=== PATIENT | female | born 1965 | race Caucasian/White ===

== ENCOUNTER 2016-09-01 18:21 | Emergency (ER) | payer SELFPAY ==
[2016-09-01 18:33] VITALS: BP 108/59
--- NOTE | 2016-09-01 19:11 | UC ---
Skin Complaint HPI - HPI Summary HPI Summary: LAST WEEK BELIEVES SHE WAS BITTEN BY UNKNOWN INSECT. NO TICK BITES. DEVELOPED RED SWOLLEN AREA ON RIGHT FOREARM. NO FEVER. PAIN AND SWELLING HAVE INCREASED SINCE TIME OF INJURY. TODAY COWORKERS TOOK SOME MATERIAL FROM CENTER OF AREA. NO DISCHARGE. NO TICK BITES. - History of Current Complaint Hx Obtained From: Patient, Family/Ruling Technician Onset/Duration: Sudden Onset, Lasting Days, Worse Since - TODAY Skin Exposure Onset/Duration: Days Ago Onset Severity: Mild Current Severity: Moderate Location: Discrete - RIGHT FOREARM Character: Pruritus, Redness, Raised, Painful Aggravating: Nothing Alleviating: Nothing Associated Signs & Symptoms: Positive: Rash, Tenderness, Red Streaks. Negative : Nausea, Vomiting, Numbness, Difficulty Breathing, Fever, Chills, Cough, Wheezing, Chest Pain, Hoarseness, Throat Tightening, Drainage Related History: Insect Bite/Sting, Possible Reaction to: Insect, Possible Reaction to: Environmental Exposure <Lambert Diaz - Last Filed: 09/01/16 19:06> - HPI Summary HPI Summary: I was available for consultation. This patient was seen by mid level provider. The patient was not presented, seen, or examined by me. WR. <Jose Carlos Roberts - Last Filed: 09/04/16 11:08> - History of Current Complaint Chief Complaint: UCSkin Time Seen by Provider: 09/01/16 18:53 Stated Complaint: BUG BITE REACTION,SWELLING SKIN - Allergy/Home Medications Allergies/Adverse Reactions: Allergies Allergy/AdvReac Type Severity Reaction Status Date / Time Latex Allergy Mild REDNESS Verified 08/11/14 11:56 WITH BANDAIDS Hydrocodone [From Vicodin] AdvReac Nausea And Verified 08/11/14 11:56 Vomiting Nitrous Oxide AdvReac Vomiting Verified 08/11/14 11:56 Review of Systems Constitutional: Negative Skin: Rash Eyes: Negative ENT: Negative Respiratory: Negative Cardiovascular: Negative Gastrointestinal: Negative Genitourinary: Negative Motor: Negative Neurovascular: Negative Musculoskeletal: Negative Neurological: Negative Psychological: Negative All Other Systems Reviewed And Are Negative: Yes <Lambert Diaz - Last Filed: 09/01/16 19:06> PMH/Surg Hx/FS Hx/Imm Hx Previously Healthy: Yes Respiratory History Of: Reports: Asthma - exercise induced asthma, Bronchitis - HISTORY OF Psychological History Of: Reports: Anxiety - ON MEDICATION, Depression - Surgical History Surgical History: Yes Surgery Procedure, Year, and Place: 2002 LEFT SHOULDER SURGERY, [place]. 2012 COLONOSCOPY, hysterectomy - Family History Known Family History: Negative: Blood Disorder - Social History Occupation: Employed Full-time Lives: With Family Alcohol Use: None Substance Use Type: None Smoking Status (MU): Never Smoked Tobacco <Lambert Diaz - Last Filed: 09/01/16 19:06> Physical Exam Triage Information Reviewed: Yes Appearance: Well-Appearing, No Pain Distress, Well-Nourished Vital Signs: Initial Vital Signs Temp 98.2 F 09/01/16 18:28 Pulse 72 09/01/16 18:28 Resp 16 09/01/16 18:28 BP 108/59 09/01/16 18:28 Pulse Ox 100 09/01/16 18:28 Vital Signs Reviewed: Yes Eye Exam: Normal Eyes: Positive: Conjunctiva Clear ENT Exam: Normal ENT: Positive: Normal ENT inspection, Hearing grossly normal, Pharynx normal, TMs normal Dental Exam: Normal Neck exam: Normal Neck: Positive: Supple, Nontender, No Lymphadenopathy Respiratory Exam: Normal Respiratory: Positive: Chest non-tender, Lungs clear, Normal breath sounds, No respiratory distress Cardiovascular Exam: Normal Cardiovascular: Positive: RRR, No Murmur Abdominal Exam: Normal Abdomen Description: Positive: Nontender, No Organomegaly Musculoskeletal Exam: Normal Musculoskeletal: Positive: Strength Intact, ROM Intact Neurological Exam: Normal Psychological Exam: Normal Psychological: Positive: Normal Response To Family Skin: Positive: Other - 8CM X 5 CM EDEMATOUS ERRETHEMATOUS AREA ON RIGHT VENTRAL FOREARM <Lambert Diaz - Last Filed: 09/01/16 19:06> Vital Signs: Initial Vital Signs Temp 98.2 F 09/01/16 18:28 Pulse 72 09/01/16 18:28 Resp 16 09/01/16 18:28 BP 108/59 09/01/16 18:28 Pulse Ox 100 09/01/16 18:28 <Jose Carlos Roberts - Last Filed: 09/04/16 11:08> Course/Dx - Differential Diagnoses - Skin Complaint Differential Diagnoses: Abscess, Cellulitis, Contact Dermatitis, Foreign Body, Local Allergic Reaction, MRSA, Poison Trice, Poison Price - Diagnoses Provider Diagnoses: INSECT BITE RIGHT FORE ARM. POSSIBLE CELLULITIS RIGHT FORE ARM <Lambert Diaz - Last Filed: 09/01/16 19:06> - Course Course Of Treatment: I was available for consultation. This patient was seen by mid level provider. The patient was not presented, seen, or examined by me. WR. <Jose Carlos Roberts - Last Filed: 09/04/16 11:08> Discharge <Lambert Diaz - Last Filed: 09/01/16 19:06> <Jose Carlos Roberts - Last Filed: 09/04/16 11:08> - Discharge Plan Condition: Stable Disposition: HOME Prescriptions: DOXYcycline CAP(*) [DOXYcycline 100MG CAP(*)] 100 mg PO BID #20 cap diPHENhydraMINE PO* [Benadryl PO 50 MG CAP*] 50 mg PO TID PRN #15 cap PRN Reason: Itching Patient Education Materials: Cellulitis (ED), Insect Bite or Sting (ED) Referrals: Adalgisa Montana MD [Primary Care Provider] -
== END 2016-09-01 19:21 | disposition home or self-care (01) ==
LOC: UCEAST 18:21
DX: S50.861A Insect bite (nonvenomous) of right forearm, initial encounter (principal); W57.XXXA Bitten or stung by nonvenomous insect and other nonvenomous arthropods, initial encounter; Y93.9 Activity, unspecified; Y92.9 Unspecified place or not applicable; Z88.5 Allergy status to narcotic agent
CPT/HCPCS: 99212; G0463

== ENCOUNTER 2018-02-02 13:22 | Emergency (ER) | payer OTHER ==
[2018-02-02 13:39] VITALS: BP 105/60
--- NOTE | 2018-02-02 14:12 | UC ---
Head Injury HPI - HPI Summary HPI Summary: 52 yo female presents with head injury. She tells me that yesterday she was cutting tree branches with hedge clippers when she lost her footing and stumbled forward. As she was stumbling forward she was squeezing the handle end of the clippers - her head got stuck between and she clamped her head on the sides. No LOC. Later that day she developed a headache, mild nausea, and felt like she had trouble concentrating. She tells me that she has had a concussion in the past and this feels similar. Her daughter looked at pt's pupils last night and thought they looked "pin point". Pt denies vision changes, dizziness, weakness, loss of balance, speech disturbances, or hearing changes. - History Of Current Complaint Chief Complaint: UCHeadInjury Stated Complaint: HEAD INJURY Time Seen by Provider: 02/02/18 14:12 Hx Obtained From: Patient Onset/Duration: Gradual Onset Severity Currently: Mild Severity Initially: Mild Pain Intensity: 4 Pain Scale Used: 0-10 Numeric - Allergies/Home Medications Allergies/Adverse Reactions: Allergies Allergy/AdvReac Type Severity Reaction Status Date / Time MS Latex [Latex] Allergy Mild REDNESS Verified 08/11/14 11:56 WITH BANDAIDS acetaminophen [From Vicodin] Allergy Nausea And Verified 02/02/18 13:41 Vomiting hydrocodone [From Vicodin] Allergy Nausea And Verified 02/02/18 13:41 Vomiting latex Allergy See Comment Verified 02/02/18 13:41 nitrous oxide Allergy See Comment Verified 02/02/18 13:41 MS Hydrocodone [From Vicodin] AdvReac Nausea And Verified 08/11/14 11:56 Vomiting MS Nitrous Oxide AdvReac Vomiting Verified 08/11/14 11:56 [Nitrous Oxide] PMH/Surg Hx/FS Hx/Imm Hx Psychological History: Anxiety, Depression, Bipolar Disorder - Surgical History Surgical History: Yes Surgery Procedure, Year, and Place: 2002 LEFT SHOULDER SURGERY, [place]. 2012 COLONOSCOPY, hysterectomy - Family History Known Family History: Positive: None Negative: Blood Disorder - Social History Occupation: Employed Full-time Lives: With Family Alcohol Use: None Substance Use Type: None Smoking Status (MU): Never Smoked Tobacco Review of Systems Constitutional: Negative Skin: Negative Respiratory: Negative Cardiovascular: Negative Gastrointestinal: Nausea Genitourinary: Negative Motor: Negative Neurovascular: Negative Musculoskeletal: Negative Neurological: Headache Psychological: Negative All Other Systems Reviewed And Are Negative: Yes Physical Exam - Summary Physical Exam Summary: GENERAL: NAD. WDWN. No pain distress. SKIN: No ecchymosis, hematoma, or open wounds appreciated. HEENT: Head: AT/NC. No racoon eyes or tatum's sign. Eyes: PERRLA. EOM intact. Pupils 2mm and contract appropriately. Ears: Hearing grossly normal. TMs intact, no bulging, erythema, or edema. NECK: Supple. Nontender. FROM CHEST: CTAB. No r/r/w. No accessory muscle use. Breathing comfortably and in no distress. CV: RRR. Without m/r/g. Pulses intact. Brisk cap refill. MSK: FROM in B/L UEs and LEs with symmetric strength. NEURO: A&Ox3. 3 word recall, remote, recent memory, ability to follow 2-step directions, and attention intact. CN II XII grossly intact. [id number] are intact. Gait with normal base. Romberg: maintains balance, no pronator drift. Normal speech. No facial drooping. PSYCH: Age appropriate behavior. Triage Information Reviewed: Yes Vital Signs: Initial Vital Signs Temp 98.3 F 02/02/18 13:34 Pulse 67 02/02/18 13:34 Resp 18 02/02/18 13:34 BP 105/60 02/02/18 13:34 Pulse Ox 100 02/02/18 13:34 Vital Signs Reviewed: Yes Head Injury Course/Dx - Course Course Of Treatment: CT: IMPRESSION: No intracranial mass or hemorrhage is noted. Given her symptoms, it is possible that she sustained a mild concussion. Advised to rest and apply ice to the areas of her head that cause her pain. Slowly advance physical and mental exercise over the course of the next few days to weeks. Strongly advised to f/u with PCP within 1 week for a recheck. If new or worsening symptoms to go to the ED. Pt and daughter with her today voiced understanding and are agreeable to the plan. - Differential Dx/Diagnosis Provider Diagnoses: Head injury Discharge - Sign-Out/Discharge Documenting (check all that apply): Patient Departure All imaging exams completed and their final reports reviewed: Yes - Discharge Plan Condition: Stable Disposition: HOME Patient Education Materials: Concussion (ED) Referrals: Adalgisa Montana MD [Primary Care Provider] - Additional Instructions: If you develop a fever, shortness of breath, chest pain, new or worsening symptoms - please call your PCP or go to the ED. 1) Rest and refrain from mental or physical activities that increase your symptoms 2) Please schedule a follow up appointment with your primary doctor for a recheck in 1 week 3) If you develop new symptoms or worsening symptoms - please go to the ER - Billing Disposition and Condition Condition: STABLE Disposition: Home
--- NOTE | 2018-02-02 15:18 | RAD ---
Indication: Head injury, headaches. CT of the brain was performed without IV contrast. Comparison is made with previous exam dated August 11, 2014. Ventricular structures are midline. No midline shift is noted. The extra-axial spaces are unremarkable. There is no evidence of intracranial mass or hemorrhage. No other high or low density lesions are identified. Mastoid air cells and paranasal sinuses are unremarkable. IMPRESSION: No intracranial mass or hemorrhage is noted.
== END 2018-02-02 15:35 | disposition home or self-care (01) ==
LOC: UCEAST 13:22
DX: S09.90XA Unspecified injury of head, initial encounter (principal); W01.0XXA Fall on same level from slipping, tripping and stumbling without subsequent striking against object, initial encounter; Y93.H2 Activity, gardening and landscaping; Y92.9 Unspecified place or not applicable; Z88.5 Allergy status to narcotic agent; Z88.6 Allergy status to analgesic agent
CPT/HCPCS: 70450; 99211; G0463